=== PATIENT | female | born 1945 | race Caucasian/White ===

== ENCOUNTER → 2016-08-30 11:07 | Outpatient (CLI) | payer MEDICARE ==
[2011-10-05 09:04] VITALS: BMI 26.5
== END | disposition home or self-care (01) ==
LOC: D.MRI 11:07
DX: M25.511 Pain in right shoulder (principal)

== ENCOUNTER → 2016-11-24 08:01 | Outpatient (CLI) | payer MEDICARE ==
[2011-10-05 09:04] VITALS: BMI 26.5
== END | disposition home or self-care (01) ==
LOC: D.US 08:01
DX: R10.13 Epigastric pain (principal)

== ENCOUNTER → 2016-12-07 08:46 | Outpatient (CLI) | payer MEDICARE ==
[2011-10-05 09:04] VITALS: BMI 26.5
== END | disposition home or self-care (01) ==
LOC: D.NM 08:46
DX: R10.13 Epigastric pain (principal)

== ENCOUNTER → 2018-04-01 10:51 | Outpatient (CLI) | payer MEDICARE ==
[2011-10-05 09:04] VITALS: BMI 26.5
== END | disposition home or self-care (01) ==
LOC: D.MRI 10:51
DX: M54.2 Cervicalgia (principal)